=== PATIENT | male | born 1985 | race Caucasian/White ===

== ENCOUNTER 2020-08-06 18:10 | Outpatient (REF) | payer MEDICAID, SELFPAY ==
[2020-08-10 03:12] LABS: Patient Race White; SARS-CoV-2 RNA Undetected (Undetected); SARS-CoV-2 Specimen Source Nasal
== END 2020-08-06 18:30 ==
LOC: NCHCN 18:10
PROVIDERS: PCP Nurse Practitioner; Visit Provider Nurse Practitioner Family
DX: Z20.828 Contact with and (suspected) exposure to other viral communicable diseases (principal)
CPT/HCPCS: U0003

== ENCOUNTER 2020-08-16 15:03 | Emergency (ER) | payer MEDICAID, SELFPAY ==
[2020-08-16 15:10] VITALS: BP 137/84; PULSE 115; RESP 18; TEMP 36.6; O2SAT 98
--- NOTE | 2020-08-16 15:30 | DI.CT_ITS ---
EXAM: CT NECK W CLINICAL HISTORY: R-sided pain, lymphadenopathy, concern for abscess TECHNIQUE: COMPARISON: No exams were available for comparison FINDINGS: CT examination cervical region was performed with intravenous infusion of 100 cc of Omnipaque 350. V isualized lung apices are clear. No gross cervical adenopathy identified. Vascular structures appea r intact. Visualized portions of the brain are unremarkable. The orbital and temporal bone structures appear i ntact as visualized. Mastoid air cells and paranasal sinuses appear clear as visualized. There is an approximately 1 cm in diameter low-attenuation focus an the right palatine tonsillar suzy on with probable associated soft tissue thickening at this site. In the appropriate clinical setting , the findings would be consistent with tonsillar abscess. Other etiologies including neoplastic dis ease not excluded. Note is also made low attenuation in right vallecular and right piriformis sinus, poorly defined soft tissue edema also noted in this region. No other focal laryngeal abnormality seen. IMPRESSION: The appearance is consistent with multiple focal abscesses involving right palatine tonsil, right pir iformis sinus region, and right vallecular region. Other etiologies including neoplastic disease are not excluded on the basis of this examination. Nicolle ropriate clinical and imaging follow-up recommended. RADIATION DOSE DELIVERED: 316.81mGy.cm Total DLP
--- NOTE | 2020-08-16 15:42 | ED.GENADUL_ITS ---
Discharge Plan Disposition Patient Disposition: HOME Condition: Stable Discharge Details Clinical Impression: Abscess, peritonsillar Primary Care Provider: Saira Donaldson ED Provider: Jazmyne Medina Home Meds and New Rx's Prescriptions: New clindamycin HCl [Cleocin HCl] 300 mg capsule 300 mg PO QID Qty: 40 RF: 0 Discharge Instructions Instructions: Abscess (ED) Additional Instructions: keep diet soft, drink plenty of water and fluids daily to stay well hydrated. use ibuprofen and or acetaminophen as directed for pain can use moist warm heat to neck for comfort. take antibiotics as prescribed, even if you feel better. return to the emergency department immediately for new or worsening symptoms call Dr Altamirano office in am for follow up appointment. Referrals: Gallo Altamirano MD [ [facility] STAFF PHYSICIAN] - Discharge Data Discharge Date/Time-TO BE ENTERED AT DEPARTURE: 08/16/20 20:15 Medical Decision Making <CHAYO Streeter - Last Filed: 08/17/20 08:09> 34-year-old gentleman, current smoker, presents with sore throat, difficulty speaking and swallowing over the past few days. Fever today at the clinic of 102 patient reports history of peritonsillar abscess. Clinically he appears nontoxic but does look uncomfortable, does have cervical lymphadenopathy with right tonsillar erythema and swelling, tachycardia in the 110's. He denies taking any Tylenol or Motrin, is currently afebrile. IV access obtained, will give IV fluids, IV Toradol, IV Decadron, CBC, CMP, rapid strep, mono. Will obtain CT soft tissue neck with contrast for further evaluation of potential peritonsillar abscess. Patient should be tested for Covid but until I had a more clear diagnosis, I am unsure under what category to place his Covid test, therefore will wait. Patient is able to speak in full sentences, manages secretions without difficulty, his airway does not appear to be compromised. At time of signout IV access is still being established. Rapid strep is negative, culture pending. Medical Records Medical records reviewed: Yes I reviewed the patient's medical records. Lab Data Lab results reviewed: Yes I reviewed the patient's lab results. Lab results narrative: 08/16/20 15:20 Tonsil - Not Specified Streptococcus Screen (VJ) - Pending <Jazmyne Medina NP - Last Filed: 08/16/20 20:24> case discussed with DR Sanchez, he performs bedside drainage, see his note for detail. discussed with Dr Altamirano who will see patient in outpatient clinic. Medical Records Medical records reviewed: Yes I reviewed the patient's medical records. Medical records narrative: CT neck: IMPRESSION: Findings of tonsillitis involving the right palatine tonsil, as on prior study. There is an associated 0.6 x 1.1 x 0.8 cm peritonsillar abscess which is decreased in size since prior study. There is inferior extension of inflammation to involve the right vallecula and right piriform sinus with a few tiny abscesses in this region, which also appears improved from prior study. There is some degree of airway narrowing at the level of the oropharynx, which is similar to prior study. Lab Data Lab results reviewed: Yes I reviewed the patient's lab results. Lab results narrative: 08/16/20 15:20 Tonsil - Not Specified Streptococcus Screen (VJ) - Pending Laboratory Tests Range/Units 08/16/20 08/16/20 08/16/20 15:55 15:55 15:55 WBC (4.4-10.8) 10^3/uL 13.56 H RBC (4.36-5.78) 10^6/uL 4.66 Hgb (13.5-17.5) g/dL 14.4 Hct (40.0-50.0) % 42.9 MCV (80-95) fL 92.1 MCH (27.0-33.0) pg 30.9 MCHC (32.0-36.0) % 33.6 RDW (11.8-14.1) % 12.3 Plt Count (130-400) 10^3/uL 187 MPV (8.0-11.0) fL 9.8 Immature Gran % 0.7 Neutrophils % 87.1 Lymphocytes % 6.3 Monocytes % 5.8 Eosinophils % 0.0 Basophils % 0.1 Nucleated RBC % % 0 Absolute Neutrophils (1.2-6.7) 10^3/uL 11.81 H Absolute Lymphocytes (1.2-3.4) 10^3/uL 0.85 L Absolute Monocytes (0.1-0.8) 10^3/uL 0.79 Absolute Eosinophils (0.0-0.7) 10^3/uL 0.00 Absolute Basophils (0.0-0.2) 10^3/uL 0.01 Sodium (136-145) mmol/L 133 L Potassium (3.5-5.1) mmol/L 4.0 Chloride (98-107) mmol/L 100 Carbon Dioxide (21.0-32.0) mmol/L 24.6 Anion Gap (3-11) mmol/L 8.4 BUN (7-18) mg/dL 14 Creatinine (0.70-1.30) mg/dL 0.87 Estimated GFR/1.73 m2 (mL/min/1.73m2) >= 60.00 Glucose (74-106) mg/dL 122 H Calcium (8.5-10.1) mg/dL 8.8 Total Bilirubin (0.2-1.0) mg/dL 0.6 AST (15-37) U/L 19 ALT (16-63) U/L 33 Alkaline Phosphatase (46-116) U/L 43 L Total Protein (6.4-8.2) g/dL 7.4 Albumin (3.4-5.0) g/dL 3.6 Monoscreen (Negative) Negative <Patrick Sanchez MD - Last Filed: 08/16/20 18:32> Patient examined [id number], discussed with nurse practitioner Adam. After Ms. Medina's discussion with Dr. Altamirano and review of CT images, the patient was consented for needle aspiration of right peritonsillar abscess. He was anesthetized with 1% lidocaine with epinephrine, 18-gauge needle was introduced and approximately 0.3 cc of purulent bloody fluid was aspirated. Patient received clindamycin, parenteral fluids and analgesics. He improved. He is to follow-up in otolaryngology office. HPI <CHAYO Streeter - Last Filed: 08/17/20 08:09> General Mode of arrival: ambulatory . Date/Time Provider Initiated Documentation: 08/16/20 15:31 . Limitations to Documentation: no limitations . Information obtained by: patient . HPI Narrative: This is a 34-year-old gentleman, current smoker, presenting to the ER reporting sore throat, fever, difficulty talking-swallowing, for the past 2-3 days. Seen at the clinic today and sent to the ER for further evaluation. Apparently he had a peritonsillar abscess in the past. Patient denies ear pain, cough, shortness of breath, chest pain abdominal pain, nausea, vomiting, body aches, change in bowel or bladder function. He reports that the pain is moderate at rest, worse with swallowing or speaking. He was around people who had respiratory symptoms last week, they tested negative for Covid. He has not been tested for Covid, denies any respiratory symptoms. Related Data Home Medications Medication Instructions Recorded Confirmed clindamycin HCl [Cleocin HCl] 300 mg PO QID #40 cap 08/16/20 Previous Rx's Medication Instructions Recorded clindamycin HCl [Cleocin HCl] 300 mg PO QID #40 cap 08/16/20 Allergies Allergy/AdvReac Type Severity Reaction Status Date / Time No Known Allergies Allergy Unverified 01/17/18 11:05 General Stated Complaint: Sorethroat ASHELY: 3 Review of Systems <CHAYO Streeter - Last Filed: 08/17/20 08:09> Constitutional Constitutional: Denies fatigue, Reports fever(s) and Denies headache(s) Eyes Eyes: Denies change in vision ENT Ears, Nose, Mouth, and Throat: Denies headache(s), Denies neck pain and Reports sore throat Cardiovascular Cardiovascular: Denies chest pain and Denies dyspnea Respiratory Respiratory: Denies cough and Denies dyspnea Gastrointestinal Gastrointestinal: Denies abdominal pain, Denies diarrhea, Denies nausea and Denies vomiting Genitourinary Genitourinary: Denies dysuria Musculoskeletal Musculoskeletal: Denies back pain and Denies neck pain Integumentary/Breasts Skin/Breast: Denies rash Neurologic Neurologic: Denies headache(s) Endocrine Endocrine: Denies fatigue [facility] <CHAYO Streeter - Last Filed: 08/17/20 08:09> Social History Smoking/Tobacco Use Status: Current every day Tobacco Type: cigarettes Smoking risk assessment performed?: Yes Alcohol Intake: current Drug use: Occasionally Substance use type: marijuana Do you feel safe at home: Yes Do you feel safe in your relationship?: Yes Exam <CHAYO Streeter - Last Filed: 08/17/20 08:09> Const General: cooperative and no acute distress Orientation: alert, awake and oriented x3 HENMT Head: normal to inspection, normocephalic and atraumatic Ears: external ears normal, TM's normal bilaterally and EAC's normal General nose exam: external nose normal Mouth: moist mucous membranes abnormal (Slightly dry) Throat: uvula midline, abnormal tonsil on the right erythema and hypertrophy, posterior oropharynx abnormal erythema and uvula not displaced Eyes General: appearance normal, both eyes and all related structures Conjunctivae: conjunctivae normal Sclera: sclerae normal Neck Neck: normal visual inspection, full ROM, no meningeal signs, trachea midline, supple, lymphadenopathy right anterior cervical and tender Resp Effort & Inspection: normal respiratory effort and able to speak in complete sentences Auscultation: clear to auscultation bilaterally Cardio Rate: tachycardic (112) Rhythm: regular rhythm GI Palpation: soft and nontender Back/Spine/Pelvis Back: No back tenderness Skin General skin exam: no rashes or lesions noted Neuro General: patient alert, patient awake, moves all extremities and no focal motor deficits Cognition: normal cognition Speech: speech normal Gait: normal gait Motor: muscle tone normal throughout Sensory Exam: no sensory deficits noted Psych Appearance: grossly normal Mental Status: mental status grossly normal Course <CHAYO Streeter - Last Filed: 08/17/20 08:09> Vital Signs Vital signs: Vital Signs Temperature 36.6 C 08/16/20 15:10 Pulse 115 H 08/16/20 15:10 Respiratory Rate 18 08/16/20 15:10 Blood Pressure 137/84 08/16/20 15:10 Pulse Oximetry 98 08/16/20 15:10 Temperature 36.6 C 08/16/20 15:10 Temperature Source Skin 08/16/20 15:10 Pulse 115 H 08/16/20 15:10 Respiratory Rate 18 08/16/20 15:10 Respiratory Effort Non-Labored 08/16/20 15:14 Blood Pressure 137/84 08/16/20 15:10 Blood Pressure Position Sitting 08/16/20 15:10 Pulse Oximetry 98 08/16/20 15:10 Oxygen Delivery Method Room Air 08/16/20 15:10 Oxygen Flow Rate 0 08/16/20 15:10 Pain Level 7 08/16/20 15:10 Lab/Test Results Lab/Test Results: 08/16/20 15:20 Tonsil - Not Specified Streptococcus Screen (VJ) - Pending POC Strep Test-GILMAR(Rapid) Start: 08/16/20 15:36 Freq: Status: Active Protocol: Document 08/16/20 15:33 EC (Rec: 08/16/20 15:36 EC [id number]) Strep test-GILMAR(Rapid)-POC POC-Strep test-GILMAR (Rapid) Negative POC-Strep test-GILMAR (Rapid) Negative <Patrick Sanchez MD - Last Filed: 08/16/20 18:32> Abscess I/D Site: Other (R tonsil) Side (if applicable): Right Local Anesthetic: Lidocaine 1% Technique: Needle Aspiration Amount of fluid expressed (mL): 0.3 Irrigation: No Packing used?: None Sign Out <CHAYO Streeter - Last Filed: 08/17/20 08:09> Sign Out Data: Sign Out Comment: Awaiting IV access, administration of medications, laboratory results. Will then require CT imaging of soft tissue neck for further evaluation of potential peritonsillar abscess. Patient will likely require Covid testing however at the moment I am unsure of what tier he will fall under and therefore will await his diagnosis for obtaining. Last updated by Donnell Bacon PA at 08/16/20 15:55
[2020-08-16] MEDS: Ketorolac 30 MG/ML VIAL IVP (16:04)
[2020-08-16] MEDS: Dexamethasone 10 MG/ML VIAL IVP (16:04)
[2020-08-16 16:08] LABS: Abs Immature Grans 0.09 10^3/uL (0.0-0.06); Absolute Lymphocyte Count 0.85 10^3/uL (1.2-3.4); Absolute Monocyte Count 0.79 10^3/uL (0.1-0.8); Absolute Neutrophil Count 11.81 10^3/uL (1.2-6.7); Basophils % 0.1; HCT 42.9 % (40.0-50.0); HGB 14.4 g/dL (13.5-17.5); Immature Grans % 0.7; Lymphocytes % 6.3; MCH 30.9 pg (27.0-33.0); MCHC 33.6 % (32.0-36.0); MCV 92.1 fL (80-95); MPV 9.8 fL (8.0-11.0); Monocytes % 5.8; Neutrophils % 87.1; Nucleated RBC 0 %; Platelet Count 187 10^3/uL (130-400); RBC 4.66 10^6/uL (4.36-5.78); RDW 12.3 % (11.8-14.1); RDW-SD 41.7 fL; WBC 13.56 10^3/uL (4.4-10.8)
[2020-08-16 16:09] LABS: Absolute Basophil Count 0.01 10^3/uL (0.0-0.2)
[2020-08-16 16:14] LABS: Mono Screening Negative (Negative)
[2020-08-16 16:20] LABS: ALT 33 U/L (16-63); AST 19 U/L (15-37); Albumin 3.6 g/dL (3.4-5.0); Alkaline Phosphatase 43 U/L (46-116); Anion Gap 8.4 mmol/L (3-11); BUN 14 mg/dL (7-18); Bilirubin, Total 0.6 mg/dL (0.2-1.0); CO2 24.6 mmol/L (21.0-32.0); CREATININE 0.87 mg/dL (0.70-1.30); Calcium 8.8 mg/dL (8.5-10.1); Chloride 100 mmol/L (98-107); Glucose 122 mg/dL (74-106); Sodium 133 mmol/L (136-145); Total Protein 7.4 g/dL (6.4-8.2)
[2020-08-16] MEDS: Normal Saline 1,000 ML 1000 ML IV ×2 (16:45→17:43)
[2020-08-16] MEDS: Normal Saline - Diluent 50 ML VIAL IV (16:52)
[2020-08-16] MEDS: Omnipaque 350 MG/ML 100 ML BTL IJ (16:52)
--- NOTE | 2020-08-16 17:27 | DI.VRAD_ITS ---
PROCEDURE INFORMATION: Exam: CT Neck With Contrast Exam date and time: 08/16/2020 3:43 PM Age: 34 years old Clinical indication: Neck pain; Patient HX: R-sided pain, lymphadenopathy, concern for abscess; Additional info: Per PT: Ongoing since Sunday TECHNIQUE: Imaging protocol: Computed tomography images of the neck with intravenous contrast. COMPARISON: CT NECK WITH CONTRAST 10/05/2017 9:20 PM FINDINGS: Nasopharynx: Unremarkable. Oropharynx: Again noted is diffuse enlargement of the right palatine tonsil, as seen around image 49, series 3, suggesting tonsillitis. Within this region, there is a focal low-dense well-defined region suggesting small abscess, which now measures 0.6 x 1.1 cm in axial dimensions and 0.8 cm in craniocaudal dimension. On prior study, this lesion measured 0.7 x 1.3 cm in axial dimensions and 3.0 cm in craniocaudal dimension. Findings are consistent with a peritonsillar abscess. There is soft tissue swelling extending inferiorly from this level in the right parapharyngeal tissues to involve the right piriform sinus and right aspect of the vallecula, as seen around image 42, series 3, although this appears mildly improved since prior study. There remain a few small low-dense collections in this region, as seen on image 41, series 3, the largest involving the right aspect of the vallecula, measuring 0.9 x 1.3 cm. This right pharyngeal soft tissue swelling is resulting in some degree of airway narrowing of the oropharynx, which is similar to prior study. Hypopharynx: See oropharynx finding. Larynx: See Oropharynx finding. Retropharyngeal space: Unremarkable. Submandibular/Parotid glands: Normal. Glands are normal in size. Thyroid: Normal. No enlarged or calcified nodules. Lymph nodes: Unremarkable. No lymphadenopathy. Trachea: Visualized trachea is unremarkable. Lungs: Unremarkable as visualized. Bones/joints: Unremarkable. No acute fracture. Soft tissues: See Oropharynx finding. IMPRESSION: Findings of tonsillitis involving the right palatine tonsil, as on prior study. There is an associated 0.6 x 1.1 x 0.8 cm peritonsillar abscess which is decreased in size since prior study. There is inferior extension of inflammation to involve the right vallecula and right piriform sinus with a few tiny abscesses in this region, which also appears improved from prior study. There is some degree of airway narrowing at the level of the oropharynx, which is similar to prior study. Findings were discussed with GRISELDA Campos at 08/16/2020 5:25 PM EST. Dictated and Authenticated by: Juvenal Dumont MD. Ordering:NATHAN Jacobo MD
[2020-08-16] MEDS: CLINDAMYCIN 900 MG/50 ML BAG 50 MG IVPB (17:29)
[2020-08-16] MEDS: ACETAMINOPHEN 1,000 MG/100 ML BTL 400 MG IVPB (18:35)
[2020-08-16 20:00] VITALS: PULSE 84; TEMP 36.6; O2SAT 98
--- NOTE | 2020-08-17 07:12 | NUR.NOTE ---
Referral faxed to ENT Dr. Altamirano consulted.Nursing Note:
== END 2020-08-16 20:15 | disposition home or self-care (01) ==
PROVIDERS: Physician Assistant; Emergency Provider Nurse Practitioner Acute Care; PCP Nurse Practitioner Family
DX: J36 Peritonsillar abscess (principal); F17.210 Nicotine dependence, cigarettes, uncomplicated
CPT/HCPCS: 10160; 36415; 70491; 80053; 87880; 96361; 96365; 96367; 96375; 99283; 85025; 86308; 87081; J0131; J1100; J1885; J3490

== ENCOUNTER 2020-09-15 14:51 | Outpatient (REF) | payer MEDICAID, SELFPAY ==
[2020-09-15 21:54] LABS: Abs Immature Grans 0.03 10^3/uL (0.0-0.06); Absolute Basophil Count 0.07 10^3/uL (0.0-0.2); Absolute Eosinophil Count 0.17 10^3/uL (0.0-0.7); Absolute Lymphocyte Count 2.21 10^3/uL (1.2-3.4); Absolute Monocyte Count 0.88 10^3/uL (0.1-0.8); Absolute Neutrophil Count 4.68 10^3/uL (1.2-6.7); Basophils % 0.9; Eosinophils % 2.1; HCT 43.2 % (40.0-50.0); HGB 14.4 g/dL (13.5-17.5); Immature Grans % 0.4; Lymphocytes % 27.5; MCH 30.4 pg (27.0-33.0); MCHC 33.3 % (32.0-36.0); MCV 91.1 fL (80-95); MPV 10.2 fL (8.0-11.0); Monocytes % 10.9; Neutrophils % 58.2; Nucleated RBC 0 %; Platelet Count 295 10^3/uL (130-400); RBC 4.74 10^6/uL (4.36-5.78); RDW 12.6 % (11.8-14.1); RDW-SD 42.2 fL; WBC 8.04 10^3/uL (4.4-10.8)
[2020-09-15 22:08] LABS: ALT 36 U/L (16-63); AST 21 U/L (15-37); Albumin 3.7 g/dL (3.4-5.0); Alkaline Phosphatase 44 U/L (46-116); Anion Gap 6.1 mmol/L (3-11); BUN 14 mg/dL (7-18); Bilirubin, Total 0.5 mg/dL (0.2-1.0); CO2 28.9 mmol/L (21.0-32.0); CREATININE 0.87 mg/dL (0.70-1.30); Calcium 8.9 mg/dL (8.5-10.1); Chloride 103 mmol/L (98-107); Glucose 97 mg/dL (74-106); Potassium 4.3 mmol/L (3.5-5.1); Sodium 138 mmol/L (136-145); Total Protein 6.8 g/dL (6.4-8.2)
[2020-09-17 16:49] LABS: COVID-19 RT-PCR UVMMC Result Negative (Negative)
== END 2020-09-15 15:11 ==
LOC: NCHCN 14:51
PROVIDERS: PCP Nurse Practitioner Family; Visit Provider Nurse Practitioner Family
DX: R19.7 Diarrhea, unspecified (principal); J36 Peritonsillar abscess; Z20.828 Contact with and (suspected) exposure to other viral communicable diseases
CPT/HCPCS: 80053; U0003; 85025

== ENCOUNTER 2020-09-15 15:01 | Outpatient (REF) | payer MEDICAID, SELFPAY ==
[2020-09-15 11:12] LABS: C Diff PCR Positive (Negative)
== END 2020-09-15 15:21 ==
LOC: LBN 15:01
PROVIDERS: PCP Nurse Practitioner Family; Visit Provider Nurse Practitioner Family
DX: R19.7 Diarrhea, unspecified (principal); J36 Peritonsillar abscess
CPT/HCPCS: 87493; 87324

== ENCOUNTER 2020-09-21 14:49 | Outpatient (REF) | payer MEDICAID, SELFPAY ==
[2020-09-21 22:32] LABS: Calculated LDL 168 mg/dL (<100); Cholesterol 238 mg/dL (<200); HDL Cholesterol 39 mg/dL (40-60); Triglyceride 159 mg/dL (<150)
== END 2020-09-21 15:09 ==
LOC: NCHCN 14:49
PROVIDERS: PCP Nurse Practitioner Family; Visit Provider Nurse Practitioner Family
DX: Z00.00 Encounter for general adult medical examination without abnormal findings (principal)
CPT/HCPCS: 80061

== ENCOUNTER 2022-10-17 15:22 | Outpatient (REF) | payer MEDICAID, SELFPAY ==
[2022-10-19 11:58] LABS: COVID-19 RT-PCR UVMMC Result Negative (Negative)
== END 2022-10-17 15:23 | disposition home or self-care (01) ==
LOC: NCHCN 15:22
PROVIDERS: PCP Nurse Practitioner Family; Visit Provider Nurse Practitioner Family
DX: Z20.822 Contact with and (suspected) exposure to COVID-19 (principal)
CPT/HCPCS: U0003